=== PATIENT | male | born 1945 | race Caucasian/White ===

== ENCOUNTER 2016-10-23 13:21 | Inpatient (IN) | payer MEDICARE, OTHER ==
--- NOTE | ~2016-10-23 | OP ---
Record Of Operation [facility] [address] [place]. [address] NAME: VALERIY BASS : 45 STATUS : ADM IN [facility]#: [id number] AGE: 71 ADM/REG DATE : 10/23/16 MR#: [id number] REPORT SERV DATE: 10/24/16 DICTATED BY: HAYLEY FARRIS DATE: 10/23/16 REPORT STATUS : Draft TRANSCRIBED BY: MODL DATE: 10/23/16 DATE OF PROCEDURE: 10/23/2016 PREOPERATIVE DIAGNOSIS: Left posterior elbow septic bursitis. POSTOPERATIVE DIAGNOSIS: Left posterior elbow septic bursitis. PROCEDURE: 1. Left posterior elbow septic bursitis. Cultures and specimen sent for gouty crystals. 2. Irrigation and debridement, to include removal of bursal sac with a rongeur. 3. Vac-Pac placement. SURGEON: Hayley Farris M.D. JAVA SOFTWARE DEVELOPER: Garrison. ANESTHESIA: General. ESTIMATED BLOOD LOSS: Less than 5 mL. COMPLICATIONS: None. DISPOSITION: The patient tolerated the procedure well and was brought to recovery room in stable condition. PROCEDURE NOTE: The patient brought to the operating room and placed in supine position. After general anesthesia was administered, a pneumatic tourniquet was placed around the left proximal arm and the left upper extremity distal to the tourniquet was prepped and draped in the usual sterile manner. A surgical timeout was performed and all were in agreement. An Esmarch was then used to exsanguinate the extremity and tourniquet was inflated. A 10 blade scalpel was used to make an 8 to 10 cm longitudinal incision overlying the olecranon septic bursitis. After the skin was incised, the bursitis was identified and incised and the purulent material was taken for samples and the rest discarded/locked out. A rongeur was then used to remove the thickened bursa sac, taking care to protect the ulnar nerve medially. The wound was then irrigated with copious amounts of normal saline via pulse lavage (3 L), and then afterwards, a sponge was cut and contoured to fit the space and packed in the wounds. It was set up. The connection tube was then put in place and a sterile dressing and a posterior splint was applied. The suction tube was put to Vac-Pac kept at 200 mm of constant pressure. Tourniquet was released and the patient was ready to be taken out of general anesthesia. RM/PENNY Record Of [place] [address] [facility]. [address] NAME: VALERIY BASS : 45 STATUS : ADM IN [facility]#: [id number] AGE: 71 ADM/REG DATE : 10/23/16 MR#: [id number] REPORT SERV DATE: 10/24/16 DICTATED BY: HAYLEY FARRIS DATE: 10/23/16 REPORT STATUS : Draft TRANSCRIBED BY: PENNY DATE: 10/23/16 Hayley Farris M.D. / [id number] CC: Anne Marie Mitchell M.D.
--- NOTE | ~2016-10-23 | CN ---
Consultation Report [facility] [address] [place]. [address] NAME: VALERIY BASS : 45 STATUS : ADM IN [facility]#: [id number] AGE: 71 ADM/REG DATE : 10/23/16 MR#: [id number] REPORT SERV DATE: 10/25/16 DICTATED BY: CARSON BONILLA DATE: 10/25/16 REPORT STATUS : Draft TRANSCRIBED BY: MODAllen DATE: 10/25/16 INFECTIOUS DISEASE CONSULT DATE OF CONSULTATION: REASON FOR REFERRAL: Evaluation and treatment of septic bursitis. HISTORY OF PRESENT ILLNESS: The patient is a 71-year-old male, with a history of hypertension, diabetes mellitus, hyperlipidemia, coronary artery disease, he has had coronary artery bypass grafting, and then redo several years later. He was admitted on 10/23/2016, with worsening swelling and pain in his left elbow. It started about a week before that and grew progressively worse. Attempts were made by his primary care physician to aspirate it. He was treated with doxycycline, worsened, and was seen by Rheumatology, who aspirated pus from the bursa, and that was cultured, and grew methicillin-sensitive Staph aureus. He was then admitted and underwent debridement of the bursa two days ago by Dr. Lew. Those cultures also grew methicillin-sensitive Staph aureus. His blood cultures have been negative. He is on Ancef now and doing better. He does not recall any particular trauma or unusual exposures prior to this starting. PAST MEDICAL HISTORY: Otherwise unremarkable. MEDICATIONS: Now on Ancef. ALLERGIES: HE HAS A HISTORY OF AN ALLERGY TO PENICILLIN THAT HAPPENED WHEN HE WAS A CHILD. HE DOES NOT KNOW EXACTLY WHAT OTHER THAN HE WAS TOLD HIS LIPS DID SWELL, TAKEN CEPHALOSPORINS IN THE PAST WITHOUT INCIDENT. SOCIAL HISTORY: He is . Nonsmoker. No history of alcohol or substance abuse. 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 FAMILY HISTORY: Noncontributory. PHYSICAL EXAMINATION: GENERAL: Nontoxic elderly male, in no acute distress. He is alert and oriented x3. VITAL SIGNS: His temperature at present is 97.7, it has been normal throughout the hospital stay, present pulse 93, respirations 18, blood pressure 124/69, and weight is 100 kg. HEENT: Sclerae clear. No oral lesions. NECK: Supple. LUNGS: Clear. HEART: Regular rate and rhythm. ABDOMEN: Soft and nontender. Positive bowel sounds. EXTREMITIES: The left elbow was covered by a surgical bulky dressing, appeared to be normal above and below that. No other extremity lesions noted. Consultation Report [place] [address] [facility] [address] NAME: VALERIY BASS : 45 STATUS : ADM IN [facility]#: [id number] AGE: 71 ADM/REG DATE : 10/23/16 MR#: [id number] REPORT SERV DATE: 10/25/16 DICTATED BY: CARSON BONILLA DATE: 10/25/16 REPORT STATUS : Draft TRANSCRIBED BY: PENNY DATE: 10/25/16 LABORATORY DATA: White blood cell count 9.1 when he came in, 6.2 today; with hematocrit of 33.2, platelets 172, BUN and creatinine 20 and 0.82, and procalcitonin 0.10. IMPRESSION: Septic bursitis of the left elbow, due to methicillin sensitive Staph aureus. RECOMMENDATIONS: 1. I agree with Ancef as best antibiotic. 2. I would recommend a total of three-week course. So, we will order that and also requested a PICC line be done on the day of discharge which should be either tomorrow or Tuesday. 3. Finally, I will follow the patient with you. I appreciate very much your consulting on this patient. NATAN Carson Bonilla M.D. / [id number] CC: Hira Smith M.D.
--- NOTE | ~2016-10-23 | OP ---
Record Of Operation [facility] [address] [place]. [address] NAME: VALERIY BASS : 45 STATUS : ADM IN PAT#: [id number] AGE: 71 ADM/REG DATE : 10/23/16 MR#: [id number] REPORT SERV DATE: 10/28/16 DICTATED BY: HAYLEY FARRIS DATE: 10/28/16 REPORT STATUS : Draft TRANSCRIBED BY: MODL DATE: 10/28/16 DATE OF PROCEDURE: 10/23/2016 PREOPERATIVE DIAGNOSIS: Left posterior elbow olecranon infected bursa and cellulitis requiring multiple I and D's on 10/23/2016, 10/26/2016. POSTOPERATIVE DIAGNOSIS: Left posterior elbow olecranon infected bursa and cellulitis requiring multiple I and D's on 10/23/2016, 10/26/2016. TESTS AND PROCEDURES: Left posterior elbow olecranon infected bursitis and additional abscess subcutaneous tissues of the dorsal forearm. 1. Repeat cultures. 2. Repeat irrigation and debridement. 3. Antibiotic bead placement and Vac-Pac placement. PHYSICIAN: Dr. Farris. ASSISTANT OPERATOR: Sedrick Simon. ANESTHESIA: General. SPECIMENS: Cultures. COMPLICATIONS: None. DISPOSITION: To recovery room in stable condition. PROCEDURE NOTE: The patient was brought to the operating room and placed in the supine position. After general anesthesia was administered, the dressing and posterior splint as well as packing was removed. The wound looked much better but still had some areas of redness and induration. The left arm proximal to the axilla was prepped and draped in the usual sterile manner. Afterwards, the wound was inspected proximally where the Vac-Pac was placed from the initial surgery on 10/23/2016, the wound looked very clean with good granulation tissue. More distally, there were pockets of pus in the left and a rongeur was used to remove this nonviable tissue and exposed these packets that had formed. Afterwards, the area was inspected again and a rongeur was also used to finish up any further debridement of questionable tissue. This was all done in the subcutaneous tissue and did not involve the muscle or bone. Afterwards the wound was adequately irrigated with normal saline via pulse lavage and antibiotic beads, which were previously mixed up before the case using 1 g of vancomycin and 240 mg of gentamicin, were placed into the edges of the wound. A new Vac-Pac sponge was placed in the center of the wound after controlling the sponge. The edges of the wound both distally and proximally were partially closed over the sponge and occlusive dressing was applied to the dorsal wound to make it airtight. The patient on a small hole overlying the sponge was made in the occlusive dressing and the connecting device was put onto the area Record Of [address] [address] NAME: VALERIY BASS : 45 STATUS : ADM IN [facility]#: [id number] AGE: 71 ADM/REG DATE : 10/23/16 MR#: [id number] REPORT SERV DATE: 10/28/16 DICTATED BY: HAYLEY FARRIS DATE: 10/28/16 REPORT STATUS : Draft TRANSCRIBED BY: PENNY DATE: 10/28/16 and then connected to the Vac-Pac suction. Afterwards sterile dressing and a posterior splint was applied. The patient was then ready to be taken out of general anesthesia and brought to the recovery room in stable condition. SHANTELLE/PENNY Hayley Farris M.D. / [id number] CC: Anne Marie Khan M.D.
--- NOTE | ~2016-10-23 | OP ---
Record Of Operation [facility] [address] [place]. [address] NAME: VALERIY BASS : 45 STATUS : ADM IN PAT#: [id number] AGE: 71 ADM/REG DATE : 10/23/16 MR#: [id number] REPORT SERV DATE: 10/26/16 DICTATED BY: HAYLEY FARRIS DATE: 10/26/16 REPORT STATUS : Draft TRANSCRIBED BY: MODL DATE: 10/26/16 DATE OF PROCEDURE: 10/23/2016 PREOPERATIVE DIAGNOSIS: Left elbow MSSA abscess of the olecranon bursa. POSTOPERATIVE DIAGNOSIS: Left elbow MSSA abscess of the olecranon bursa. PROCEDURES: Left elbow 1. Repeat cultures. 2. Repeat irrigation and debridement with a new pocket of abscess found distal to the previous incision. PHYSICIAN: Hayley Farris M.D. QUALITY AUDITOR: Joyce Mendez. ANESTHESIA: General. ESTIMATED BLOOD LOSS: 5 mL. CULTURES: X2 sets. COMPLICATIONS: None. DISPOSITION: The patient tolerated the procedure well and was brought to the recovery room in stable condition. PROCEDURE NOTE: The patient was brought to the operating room and placed in the supine position. After general anesthesia was administered, a pneumatic tourniquet was placed around the left proximal arm. Part of the dressing was removed. The Esmarch was used to exsanguinate the extremity. Tourniquet was inflated. The rest of the dressing was removed but the sponge was kept in place. Left upper extremity distal to the tourniquet was prepped and draped in the usual sterile manner. Sponge was removed. Cultures taken from the space formerly occupied by the bursa, and this was more proximal. The area looked pink and viable and good granulation tissue. However more distally was a pocket of pus and this was incised and the skin overlying this area was incised and then connected to the dorsal incision overlying the ulna. Approximately 10 to 20 mL of pus emanated from the area and was collected, some was sent to microbiology. The wound was then irrigated. A rongeur was used to remove nonviable tissue and after adequate irrigation and debridement, a Vac-Pac sponge was put in the base of the wound and the edges were sewn together using 0 Prolene suture. An occlusive dressing was applied and the connector was placed onto the dressing directly overlying the hole made through the occlusive dressing that was overlying the sponge. This was connected to the suction device and a good seal was able to be achieved. A sterile dressing and a posterior splint was applied. The patient was ready to be taken out of general anesthesia, having tolerated the procedure well. Record Of Operation [place] [id number] [facility] [place]. [address] NAME: VALERIY BASS : 45 STATUS : ADM IN [facility]#: [id number] AGE: 71 ADM/REG DATE : 10/23/16 MR#: [id number] REPORT SERV DATE: 10/26/16 DICTATED BY: HAYLEY FARRIS DATE: 10/26/16 REPORT STATUS : Draft TRANSCRIBED BY: PENNY DATE: 10/26/16 /PENNY Hayley Farris M.D. / [id number] CC: Anne Marie Khan M.D.
--- NOTE | ~2016-10-23 | OP ---
Record Of Operation [facility] [address] [place]. [address] NAME: VALERIY BASS : 45 STATUS : ADM IN PAT#: [id number] AGE: 71 ADM/REG DATE : 10/23/16 MR#: [id number] REPORT SERV DATE: 10/31/16 DICTATED BY: HAYLEY FARRIS DATE: 10/31/16 REPORT STATUS : Draft TRANSCRIBED BY: MODAllen DATE: 10/31/16 DATE OF PROCEDURE: 10/31/2016 PREOPERATIVE DIAGNOSIS: Left posterior elbow into the forearm skin and subcutaneous and slightly deeper methicillin-sensitive Staphylococcus aureus infection status post previous irrigation and debridement and VAC pack placement x3. PROCEDURES: Left posterior elbow/forearm: 1. Repeat cultures. 2. Debridement of subcutaneous nonviable tissue and distal triceps tendon nonviable tissue. 3. Antibiotic beads placement using 1 g of vancomycin and 240 mg of gentamicin. 4. Delayed wound closure. SURGEON: Hayley Farris M.D. MARINE ENGINE DRIVER: Randal Vargas. ANESTHESIA: General. SPECIMENS REMOVED: Cultures x3. COMPLICATIONS: None. DISPOSITION: The patient tolerated the procedure well and was brought to the recovery room in stable condition. PROCEDURE NOTE: The patient was brought to the operating room and placed in the supine position. After general anesthesia was administered, a pneumatic tourniquet was placed around the left proximal arm. The left upper extremity distal to the tourniquet was prepped and draped in the usual sterile manner. A surgical timeout was performed and all were in agreement. At this time, the VAC pack sponge was removed, and cultures were taken. The wound was inspected and afterwards, the previous remaining antibiotic beads were removed. The wound was then irrigated with normal saline via pulse lavage. A rongeur and pickup and scissors were used to debride the nonviable tissue and the subcutaneous tissue as well as the distal triceps tendon as it inserted into the olecranon since this tissue was of poor quality and had evidence of damage from the infection. Afterwards, adequate debridement was carried out. The wound was then packed with antibiotic beads and closed using Prolene suture. A sterile dressing and a posterior splint was applied. The tourniquet, which was inflated prior to prepping and draping, was then released and after the dressing and posterior splint was applied, the patient was taken out of general anesthesia and brought to the recovery room in stable condition. /MODL Record Of [facility] [address] [facility] [address] [place]. [address] NAME: VALERIY BASS : 45 STATUS : ADM IN [facility]#: [id number] AGE: 71 ADM/REG DATE : 10/23/16 MR#: [id number] REPORT SERV DATE: 10/31/16 DICTATED BY: HAYLEY FARRIS DATE: 10/31/16 REPORT STATUS : Draft TRANSCRIBED BY: MODAllen DATE: 10/31/16 Hayley Farris M.D. / [id number] CC: Anne Marie Khan M.D.
--- NOTE | ~2016-10-23 | HP ---
History And Physical [address] [address] NAME: TOR BASS : 45 STATUS : ADM IN [facility]#: [id number] AGE: 71 ADM/REG DATE : 10/23/16 MR#: [id number] REPORT SERV DATE: 10/24/16 DICTATED BY: HAYLEY FARRIS DATE: 10/23/16 REPORT STATUS : Draft TRANSCRIBED BY: MODL DATE: 10/23/16 DATE OF ADMISSION: 10/23/2016 CHIEF COMPLAINT: Right elbow septic bursitis. HISTORY OF PRESENT ILLNESS: Mr. 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 He still works, but does enjoy traveling to [place] to [place]. For the past 5 to 6 weeks, he has been bothered with left posterior elbow pain and swelling around the olecranon area. He was seen by his family physician, Dr. Costa who then referred Mr. Bass to Dr. Vicki Granado, at [facility]. On 10/21/2016, Dr. Granado aspirated the left posterior elbow and this was positive for rare uric acid extracellular crystals. Over the next ensuing 20 to 24 hours, his symptoms of pain and swelling increased in his posterior elbow. 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 He was then checked by Dr. Granado who told Mr. Bass he should come to the hospital. He is now in direct admit and is under the care of Dr. Hira Smith who has ordered vancomycin to start shortly. Interestingly, there has been no other joint pain, swelling, including the toe MTP joints or right posterior elbow olecranon area. He does complain of bilateral base of thumb pain. PAST MEDICAL HISTORY: 1. Insulin-dependent diabetes. 2. Coronary artery disease. 3. TIA in 2001 with resolved symptoms. 4. Hyperlipidemia. 5. Gout. 6. Neuropathy affecting feet only. PAST SURGICAL HISTORY: 1. CABG in 1989 and redo in 2001. 2. Multiple stent placements (14), over the past 20 years. 3. History of prostate CA, treated with radiation therapy by Dr. Bustillo and now followed by Dr. Abel Willis. 4. Bilateral ring finger trigger finger releases by Dr. Bg Mendez. ALLERGIES: PENICILLIN WHICH CAUSES ANGIOEDEMA. HOME MEDICATIONS: 1. Elavil 10 mg at bedtime. 2. Vitamin C 500 mg daily. 3. Aspirin 81 mg at bedtime. 4. B complex vitamin one tab p.o. daily. 5. Zyrtec 10 mg p.o. at bedtime. 6. Jardiance 10 mg p.o. daily. 7. Folic acid 400 mcg daily. 8. Amaryl 2 mg daily. 9. Imdur 20 mg tabs daily. History And Physical [address] [address] NAME: TOR BASS : 45 STATUS : ADM IN [facility]#: [id number] AGE: 71 ADM/REG DATE : 10/23/16 MR#: [id number] REPORT SERV DATE: 10/24/16 DICTATED BY: HAYLEY FARRIS DATE: 10/23/16 REPORT STATUS : Draft TRANSCRIBED BY: PENNY DATE: 10/23/16 10.Toprol-XL 100 mg p.o. daily. 11.Nitrostat 0.4 mg sublingual p.r.n. chest pain (many years since last taken). 12.Prilosec 20 mg daily. 13.Lyrica 50 mg tabs bedtime. 14.Altace 2.5 mg p.o. daily. 15.Crestor 40 mg daily. 16.Janumet mg tabs 1 tab p.o. b.i.d. 17.Recently started Bactrim DS 1 p.o. b.i.d. on 10/22/2016 but is not part of his regular pain medicine. SOCIAL HISTORY: , one child, daughter, who is healthy. 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 Negative for EtOH or tobacco. He enjoys fishing. REVIEW OF SYSTEMS: Wears reading glasses. Denies any chest pain for the past five years, but does have some pain and impotence, otherwise 13-point review of systems reveals no other abnormalities. FAMILY HISTORY: Noncontributory. PHYSICAL EXAMINATION: GENERAL: Pleasant, cooperative 71-year-old, white male, lying in bed, with bandage over left elbow covered with pus, in no acute distress. VITAL SIGNS: Height 6 feet, weight 209 pounds. Blood pressure 143/81, heart rate 95, saturation 98% on room air. HEENT: Normocephalic, atraumatic. Some teeth missing but pharynx not injected. Sclerae nonicteric. COR: Regular rate. LUNGS: Clear to auscultation. ABDOMEN: Soft, nontender. MUSCULOSKELETAL: C-spine nontender. Full range of motion. Right shoulder, elbow, wrist, and all fingers with functional range of motion. Right thumb has some tenderness of the thumb CMC joint and there is a weakly positive Grind test. All fingers of both hands with early Heberden's nodes. Left upper extremity is held close to the body. The shoulder is nontender and the dressing on the posterior elbow saturated with pus, emanating from the aspiration site. There is redness and pitting edema of the elbow and forearm and weakly positive axillary adenopathy. Epitrochlear adenopathy not able to be palpated due to the swelling. Left hand is neurovascularly intact and elbow wrist range of motion not performed due to pain caused by infection at elbow. Fingers are neurologically intact and has full range of motion. TLS spine is nontender. Both hips, knees, and ankles with no gross deformities and no point tenderness. LABORATORY DATA: Aspiration from left elbow performed at [facility] showed rare uric acid extracellular crystals. CRP was 14.66 and the sedimentation rate was 72. History And Physical [address] [address] NAME: TOR BASS : 45 STATUS : ADM IN [facility]#: [id number] AGE: 71 ADM/REG DATE : 10/23/16 MR#: [id number] REPORT SERV DATE: 10/24/16 DICTATED BY: HAYLEY FARRIS DATE: 10/23/16 REPORT STATUS : Draft TRANSCRIBED BY: PENNY DATE: 10/23/16 IMPRESSION: 1. Left posterior elbow septic bursitis. 2. Gout. 3. Severe coronary artery disease. PLAN: The patient will undergo irrigation, debridement, and Vac-Pac placement, posterior elbow olecranon bursitis, and repeat I and D in 3 to 4 days. The risks and benefits of the surgery were discussed with Tor. All questions were answered by me to satisfaction. He wished to proceed with surgery. We will plan for this shortly. SHANTELLE/PENNY Hayley Farris M.D. / [id number] CC: Anne Marie Mitchell M.D.
--- NOTE | ~2016-10-23 | HP ---
History And Physical [id number] [place]. [address] NAME: VALERIY BASS : 45 STATUS : ADM IN [facility]#: [id number] AGE: 71 ADM/REG DATE : 10/23/16 MR#: [id number] REPORT SERV DATE: 10/23/16 DICTATED BY: HIRA SMITH DATE: 10/23/16 REPORT STATUS : Draft TRANSCRIBED BY: MODL DATE: 10/23/16 DATE OF ADMISSION: 10/23/2016 CHIEF COMPLAINT: Left elbow swelling. HISTORY OF PRESENT ILLNESS: The patient is a 71-year-old white male, who was referred to the hospital as a direct admission by Dr. Vicki Granado, where the patient had presented with left elbow swelling and forearm redness. Dr. Granado saw him last and thought that he had septic bursitis and actually did an aspiration of his elbow and cultures were sent. Cultures grew Staph aureus, sensitivities are not back yet. The patient presented again today for a followup and his arm looked worse and more cellulitic as well as more swelling, so Dr. Granado referred the patient to the hospital for further treatment and evaluation. When I talked to the patient in the hospital, this patient reported that his problem started about three weeks ago where Dr. Quan Costa had seen him first, aspirated his elbow, but there was no antibiotics at that time, but then the swelling recurred. He went to see Dr. Costa again and I think it was reaspirated at that time. In the interim, Dr. Heller saw the patient and recommended that he see Dr. Granado, and at that point, the patient hence was referred to the hospital for further evaluation and treatment for failing outpatient oral treatment for what appears to be septic bursitis and cellulitis. This patient reports some mild chest pain. He has had some shortness of breath. He denies any fevers. He has had sweats. Last night or day before, he had an acute rupture of the elbow and had significant leakage of fluid. He has not had any nausea, vomiting or any other constitutional symptoms. REVIEW OF SYSTEMS: 12-point review of systems otherwise negative except for what is noted in the HPI. PAST MEDICAL HISTORY: Significant for gout, type 2 diabetes mellitus, hypertension, coronary artery disease, and hyperlipidemia. PAST SURGICAL HISTORY: Significant for CABG and then redo CABG. Radiation therapy to the prostate for prostate cancer. ALLERGIES: TO PENICILLIN IN CHILDHOOD. HE HAD A LOWER LIP SWELLING AT THAT TIME. HOME MEDICATIONS: Include Zyrtec 10 mg once daily, vitamin C 500 mg once daily, super B vitamin complex, Bactrim DS one tablet twice daily and has taken one day therapy of it, ramipril 2.5 mg capsule, Prilosec 20 mg OTC, Nitrostat 0.4 sublingual p.r.n., Lopressor XL 100 mg daily, Lyrica 50 mg once daily, Jardiance one tablet once daily, Janumet 50 mg/1000 mg twice daily, isosorbide mononitrate ER 60 mg once daily, Glimepiride 4 mg once daily, folic acid 400 mcg once daily, Crestor 40 mg once daily, colchicine 0.6 mg one tablet two times every day as needed for gout, aspirin 81 mg once daily, and Elavil 10 mg two tablets at bedtime. SOCIAL HISTORY: This patient denies use of alcohol, tobacco, or illicit substances. He currently is employed and owns [employer]. History And Physical [address] [address] NAME: VALERIY BASS : [birth year] STATUS : ADM IN [facility]#: [id number] AGE: 71 ADM/REG DATE : 10/23/16 MR#: [id number] REPORT SERV DATE: 10/23/16 DICTATED BY: HIRA SMITH DATE: 10/23/16 REPORT STATUS : Draft TRANSCRIBED BY: PENNY DATE: 10/23/16 FAMILY HISTORY: Significant for heart disease. No history of cancer. PHYSICAL EXAMINATION: GENERAL: White male, lying on the bed, appears to be in no obvious respiratory distress. NEURO: He is awake, alert. He is oriented. VITAL SIGNS: Blood pressure is 132/76, temperature is 98.5, pulse of 98. HEENT: Head is normocephalic, atraumatic. Pupils are equal, round, and reactive to light. Extraocular muscles are intact. Sclerae are anicteric. Conjunctivae normal. Oropharynx without lesion. Tongue protrusion midline. Uvula midline. NECK: Supple. No evidence of jugular venous distention. No carotid bruits or thyromegaly is appreciated. No lymphadenopathy in the neck is palpable. HEART: Regular rate rhythm. No murmurs, rubs, or gallops are heard. PMI is nondisplaced. LUNGS: Clear to auscultation both anteriorly and posteriorly without rales, rhonchi, wheezing, or consolidation. ABDOMEN: Slightly obese, soft, nontender. Good bowel sounds. No rebound or guarding. No organomegaly. EXTREMITIES: Without cyanosis, clubbing, or edema in the lower extremities. The right upper extremity appears to be intact. Prior surgical correction of trigger finger in both arms is noted. In the left upper extremity, there is significant swelling with redness, warmth, and erythema. There is some expressible material at the left elbow and tenderness to palpation. NEUROLOGICAL: Seems to be grossly intact. LABORATORY DATA: All labs are pending. I do have a preliminary culture report from elbow aspiration done by Dr. Granado on 10/21/2016 and it shows abundant growth of Staphylococcus aureus. The evaluation of the fluid did show rare uric acid extracellular crystals. His CRP was 14. His sedimentation rate was 72. Serum uric acid level was 4.2. Albumin was 3.6, alkaline phosphatase was 46, ALT was 16, AST was 17, BUN was 19, calcium was 8.8. Chloride was 104, bicarb was 25, creatinine was 0.78, glucose was 96, potassium was 4.1. IMPRESSION: 1. Left elbow septic bursitis. 2. Cellulitis of the left forearm. 3. Possible gout. 4. Non-insulin dependent diabetes. 5. Hypertension. 6. Coronary artery disease, status post coronary artery bypass graft and redo coronary artery bypass graft. 7. Hyperlipidemia. 8. History of prostate cancer, status post radiation therapy. PLAN: The patient will be admitted. Ortho consult will be done. I have already discussed his care with Dr. Sevilla. We will keep him n.p.o. for now. We will start IV vancomycin. We will obtain blood cultures. We will repeat procalcitonin level and we will also get a lactate level. We will follow up the aspirate culture and sensitivities. Check other routine labs. Continue home medications when available from Pharmacy. The patient remains a full code. History And Physical [address] [address] NAME: VALERIY BASS : 45 STATUS : ADM IN [facility]#: [id number] AGE: 71 ADM/REG DATE : 10/23/16 MR#: [id number] REPORT SERV DATE: 10/23/16 DICTATED BY: HIRA SMITH DATE: 10/23/16 REPORT STATUS : Draft TRANSCRIBED BY: PENNY DATE: 10/23/16 MAGALI/PENNY Hira Smith M.D. / [id number] CC: Anne Marie Mitchell M.D. Leonard Hays III, M.D., LOCATED WITHIN [facility], [facility] Vicki Granado M.D.
--- NOTE | ~2016-10-23 | DS ---
Discharge Summary [facility] [address] [place]. [address] NAME: VALERIY BASS : 45 STATUS : ADM IN [facility]#: [id number] AGE: 71 ADM/REG DATE : 10/23/16 MR#: [id number] REPORT SERV DATE: 11/01/16 DICTATED BY: HERMAN JOSHUA DATE: 11/01/16 REPORT STATUS : Draft TRANSCRIBED BY: MODL DATE: 11/01/16 ADMISSION DATE: 10/23/2016 DISCHARGE DATE: 11/01/2016 FINAL HOSPITAL DIAGNOSES: 1. Bursitis and cellulitis of the left elbow. 2. Diabetes. 3. Hypertension. 4. History of coronary artery disease. CONSULTATIONS: 1. Dr. Lew, Orthopedics. 2. Dr. Pierre, Infectious Disease. PROCEDURES: Multiple debridement and wound cultures to the left upper extremity. Echocardiogram done on 10/23/2016, dilated multi-infarct cardiomyopathy with reduction in global LV systolic function, mild left atrial enlargement, incomplete mitral valve closure, mild regurgitation, EF was 25%-30%. CURRENT PHYSICAL FINDINGS AND HPI: Please see dictated H and P by Dr. Smith. In brief, the patient is a 71-year-old male who presented after outpatient treatment for his bursitis that was not resolving. LAB WORK: Initial procalcitonin was 0.10. Electrolytes were monitored during his hospital stay and were normal. C-reactive protein was noted to be elevated at 208. Lactate initial on the admit was 2.5. Presenting white count was 9.1, 5.5 prior to discharge. Sed rate was 86. Blood cultures on the 10/23/2016 were negative at four days. Joint aspiration was methicillin-sensitive Staph aureus. Wound cultures multiple were MSSA also. HOSPITAL COURSE: Initial vital signs showed a BP of 132/76, temp was 98.5, and he remained afebrile during his hospital stay. Heart rates were in the 80s to 90s. He had no supplemental O2 requirements. The patient was admitted with a concern for septic arthritis. Infectious Disease and Orthopedics were consulted. Above lab work and studies were done and ordered. He was placed on sliding scale insulin. His home meds were held for his diabetes. Orthopedics was consulted and he underwent his first surgery on the 10/23/2016. Pharmacy dosed his vancomycin and this was changed to Ancef on the 10/24/[address] Smith. He had a PICC line placed on the 10/25/2016. ID was consulted at that time and continued the Ancef. Dr. Lew continued to follow and patient had several I and D and wound cultures done during his hospital stay. His only problems during the stay, he became hypertensive, it was noted that he was retaining fluid and he responded well to IV Lasix with near resolution of his edema and back to his target weight. His Altace dose was increased from 2.5 to 5 and he was given p.r.n. hydralazine. His sliding scales were titrated and then he was initially started on Norvasc 5 additionally to control his blood pressure. Electrolytes were followed. He had no hypokalemia or magnesemia. On 11/01/2016, home health was arranged, antibiotic orders were noted, and he was felt stable for discharge. New Rx given were for Altace 5, the dose increased from 2.5; Norvasc 5 one per day. The patient will Discharge [address] [address] NAME: VALERIY BASS : 45 STATUS : ADM IN [facility]#: [id number] AGE: 71 ADM/REG DATE : 10/23/16 MR#: [id number] REPORT SERV DATE: 11/01/16 DICTATED BY: HERMAN JOSHUA DATE: 11/01/16 REPORT STATUS : Draft TRANSCRIBED BY: MODAllen DATE: 11/01/16 follow his blood pressures, and when they returned to normal, he will titrate off the Norvasc unless his hypertension should recur, and Florastor b.i.d. while he is on p.o. antibiotics. Otherwise, we will have pharmacy clarify his home medications on his discharge, but appears his meds will be Elavil 20, aspirin 81, Ancef q.8, Imdur 120, nitro 0.4, Toprol-XL 100, Prilosec 20, Lyrica 50 at bedtime, Janumet b.i.d., B-complex, vitamin C, Crestor 40, Jardiance 10 mg daily, folic acid 400, vitamin D, Amaryl 2, Zyrtec 10. TLF/MODL Herman Joshua M.D. / [id number] CC: Anne Marie Khan M.D.
[~2016-10-23 13:21] MED LIST: ALTA2.5 PO; AMARYL4 PO; AMIT10 PO; ASAB PO; ATEN100 PO; ATEN50 PO; B COMPLETE PO; CO Q-10200 MG PO; CRESTOR40 MG PO; FOLIC ACID; Folic Acid PO; IMDUR30 PO; IMDUR60 PO; JANUMET1 TA1 PO; LEVEMFLXPN SC; LOPID6 PO; NEUR300 PO; NTG150 SL; PRILO PO; PRILOSEC10 MG PO; VITC500 PO
[2016-10-23] MEDS ORDERED: AMIT10 PO (14:27)
[2016-10-23] MEDS ORDERED: JARDI10T PO (14:28)
[2016-10-23] MEDS ORDERED: IMDUR120 PO (14:28)
[2016-10-23] MEDS ORDERED: CRESTOR40 MG PO (14:28)
[2016-10-23] MEDS ORDERED: LYRICA50 PO (14:28)
[2016-10-23] MEDS ORDERED: JANUMET1 TA1 PO (14:28)
[2016-10-23] MEDS ORDERED: FOLIC ACID400 MC1 PO (14:29)
[2016-10-23] MEDS ORDERED: TOPXL100 PO (14:29)
[2016-10-23] MEDS ORDERED: ALTA2.5 PO (14:29)
[2016-10-23] MEDS ORDERED: VITAMIN B PO (14:29)
[2016-10-23] MEDS ORDERED: VITC500 PO (14:29)
[2016-10-23] MEDS ORDERED: BACTRIM DS1 TAB PO (14:29)
[2016-10-23] MEDS ORDERED: NITROSTAT0.4 MG SL (14:30)
[2016-10-23] MEDS ORDERED: PRILO PO (14:30)
[2016-10-23] MEDS ORDERED: ZYRTEC ALLGY10 MG PO (14:30)
[2016-10-23] MEDS ORDERED: ASAB PO (14:30)
[2016-10-23] MEDS ORDERED: AMARYL2 PO (14:30)
[2016-10-23 15:15] LABS: BASOPHILS 0.1 %; BASOPHILS ABSOLUTE 0.01 10/3/uL (0.0-0.16); EOSINOPHILS 0.7 %; EOSINOPHILS ABSOLUTE 0.06 10/3/uL (0.0-0.53); HEMATOCRIT 38.1 % (40.0-51.0); HEMOGLOBIN 12.7 g/dL (13.6-17.8); IMMATURE GRANULOCYTES 0.2 %; IMMATURE GRANULOCYTES ABSOLUTE 0.02 10/3/uL (0.0-0.11); LYMPHOCYTES 11.1 %; LYMPHOCYTES ABSOLUTE 1.01 10/3/uL (0.67-4.30); MEAN CORPUS HGB CONC 33.3 g/dL (32.0-36.0); MEAN CORPUSCULAR HEMOGLOB 29.9 pg (26.0-34.0); MEAN CORPUSCULAR VOLUME 89.6 fL (80-100); MEAN PLATELET VOLUME 9.6 fL (9.2-13.0); MONOCYTES 9.7 %; MONOCYTES ABSOLUTE 0.88 10/3/uL (0.21-1.20); NEUTROPHILS 78.2 %; NEUTROPHILS ABSOLUTE 7.09 10/3/uL (2.02-8.40); PLATELET COUNT 152 10/3/uL (150-400); RBC DISTRIBUTION WIDTH 15.1 % (12.0-16.0); RED CELL COUNT 4.25 10/6/uL (4.7-6.1); WHITE BLOOD CELLS 9.1 10/3/uL (4.5-10.5)
[2016-10-23 15:20] LABS: MANUAL DIFF NO %
[2016-10-23 15:38] LABS: A/G RATIO 0.7 (0.7-1.9); ALBUMIN 3.1 G/DL (3.5-5.0); ALKALINE PHOSPHATASE 72 U/L (45-117); BUN (BLOOD UREA NITROGEN) 16 MG/DL (6-23); CHLORIDE, SERUM 102 MMOL/L (96-112); CO2 (CARBON DIOXIDE) 25 MMOL/L (24-34); CREATININE 1.04 MG/DL (0.70-1.30); GFR AFRICAN AMERICAN 83 ML/MIN (>=60); GFR NON AFRICAN AMERICAN 72 ML/MIN (>=60); GLOBULIN 4.7 G/DL (2.5-4.1); GLUCOSE, SERUM 145 MG/DL (60-99); PHOSPHORUS, SERUM 2.4 MG/DL (2.5-4.5); POTASSIUM, SERUM 4.4 MMOL/L (3.5-5.3); SGOT(AST) 13 U/L (5-40); SGPT(ALT) 16 U/L (5-65); SODIUM, SERUM 139 MMOL/L (135-148); TOTAL BILIRUBIN 0.6 MG/DL (0-1.2); TOTAL PROTEIN 7.8 G/DL (6.0-8.5)
[2016-10-23 16:28] LABS: SED RATE 86 MM/HR (0-15)
[2016-10-24 02:32] LABS: BASOPHILS 0 %; EOSINOPHILS 0.5 %; EOSINOPHILS ABSOLUTE 0.04 10/3/uL (0.0-0.53); HEMOGLOBIN 11.2 g/dL (13.6-17.8); IMMATURE GRANULOCYTES 0.1 %; IMMATURE GRANULOCYTES ABSOLUTE 0.01 10/3/uL (0.0-0.11); LYMPHOCYTES ABSOLUTE 1.05 10/3/uL (0.67-4.30); MEAN CORPUS HGB CONC 33.2 g/dL (32.0-36.0); MEAN CORPUSCULAR HEMOGLOB 29.9 pg (26.0-34.0); MEAN CORPUSCULAR VOLUME 90.1 fL (80-100); MEAN PLATELET VOLUME 9.4 fL (9.2-13.0); MONOCYTES 10.9 %; MONOCYTES ABSOLUTE 0.88 10/3/uL (0.21-1.20); NEUTROPHILS 75.5 %; PLATELET COUNT 142 10/3/uL (150-400); RBC DISTRIBUTION WIDTH 15.2 % (12.0-16.0); RED CELL COUNT 3.74 10/6/uL (4.7-6.1); WHITE BLOOD CELLS 8.1 10/3/uL (4.5-10.5)
[2016-10-24 02:33] LABS: HEMATOCRIT 33.7 % (40.0-51.0); MANUAL DIFF NO %
[2016-10-24 02:45] LABS: ALBUMIN 2.5 G/DL (3.5-5.0); BUN (BLOOD UREA NITROGEN) 19 MG/DL (6-23); CALCIUM, SERUM 8.3 MG/DL (8.5-10.4); CHLORIDE, SERUM 106 MMOL/L (96-112); CO2 (CARBON DIOXIDE) 25 MMOL/L (24-34); CREATININE 0.97 MG/DL (0.70-1.30); GFR AFRICAN AMERICAN 91 ML/MIN (>=60); GFR NON AFRICAN AMERICAN 78 ML/MIN (>=60); GLUCOSE, SERUM 170 MG/DL (60-99); PHOSPHORUS, SERUM 4.1 MG/DL (2.5-4.5); POTASSIUM, SERUM 4.5 MMOL/L (3.5-5.3); SODIUM, SERUM 141 MMOL/L (135-148)
[2016-10-25 05:37] LABS: BASOPHILS 0.3 %; BASOPHILS ABSOLUTE 0.02 10/3/uL (0.0-0.16); EOSINOPHILS 4.5 %; EOSINOPHILS ABSOLUTE 0.28 10/3/uL (0.0-0.53); HEMATOCRIT 33.2 % (40.0-51.0); HEMOGLOBIN 10.9 g/dL (13.6-17.8); IMMATURE GRANULOCYTES 0.2 %; IMMATURE GRANULOCYTES ABSOLUTE 0.01 10/3/uL (0.0-0.11); LYMPHOCYTES 17.6 %; LYMPHOCYTES ABSOLUTE 1.09 10/3/uL (0.67-4.30); MEAN CORPUS HGB CONC 32.8 g/dL (32.0-36.0); MEAN CORPUSCULAR HEMOGLOB 29.7 pg (26.0-34.0); MEAN CORPUSCULAR VOLUME 90.5 fL (80-100); MEAN PLATELET VOLUME 9.6 fL (9.2-13.0); MONOCYTES 10.2 %; MONOCYTES ABSOLUTE 0.63 10/3/uL (0.21-1.20); NEUTROPHILS 67.2 %; NEUTROPHILS ABSOLUTE 4.15 10/3/uL (2.02-8.40); PLATELET COUNT 172 10/3/uL (150-400); RBC DISTRIBUTION WIDTH 15.4 % (12.0-16.0); RED CELL COUNT 3.67 10/6/uL (4.7-6.1); WHITE BLOOD CELLS 6.2 10/3/uL (4.5-10.5)
[2016-10-25 05:39] LABS: MANUAL DIFF NO %
[2016-10-25 05:51] LABS: ALBUMIN 2.4 G/DL (3.5-5.0); BUN (BLOOD UREA NITROGEN) 20 MG/DL (6-23); CALCIUM, SERUM 8.3 MG/DL (8.5-10.4); CHLORIDE, SERUM 108 MMOL/L (96-112); CO2 (CARBON DIOXIDE) 21 MMOL/L (24-34); CREATININE 0.82 MG/DL (0.70-1.30); GFR AFRICAN AMERICAN 103 ML/MIN (>=60); GFR NON AFRICAN AMERICAN 89 ML/MIN (>=60); GLUCOSE, SERUM 172 MG/DL (60-99); POTASSIUM, SERUM 4.1 MMOL/L (3.5-5.3); SODIUM, SERUM 138 MMOL/L (135-148)
[2016-10-25 05:54] LABS: PHOSPHORUS, SERUM 2.5 MG/DL (2.5-4.5)
[2016-10-26 05:08] LABS: BASOPHILS 0.2 %; BASOPHILS ABSOLUTE 0.01 10/3/uL (0.0-0.16); EOSINOPHILS 4.1 %; EOSINOPHILS ABSOLUTE 0.24 10/3/uL (0.0-0.53); HEMATOCRIT 35.5 % (40.0-51.0); HEMOGLOBIN 11.6 g/dL (13.6-17.8); IMMATURE GRANULOCYTES 0.2 %; IMMATURE GRANULOCYTES ABSOLUTE 0.01 10/3/uL (0.0-0.11); LYMPHOCYTES 15.6 %; LYMPHOCYTES ABSOLUTE 0.91 10/3/uL (0.67-4.30); MEAN CORPUS HGB CONC 32.7 g/dL (32.0-36.0); MEAN CORPUSCULAR HEMOGLOB 29.5 pg (26.0-34.0); MEAN CORPUSCULAR VOLUME 90.3 fL (80-100); MEAN PLATELET VOLUME 9.4 fL (9.2-13.0); MONOCYTES 10.3 %; NEUTROPHILS 69.6 %; NEUTROPHILS ABSOLUTE 4.06 10/3/uL (2.02-8.40); PLATELET COUNT 183 10/3/uL (150-400); RED CELL COUNT 3.93 10/6/uL (4.7-6.1); WHITE BLOOD CELLS 5.8 10/3/uL (4.5-10.5)
[2016-10-26 05:09] LABS: MANUAL DIFF NO %
[2016-10-26 05:24] LABS: ALBUMIN 2.5 G/DL (3.5-5.0); BUN (BLOOD UREA NITROGEN) 18 MG/DL (6-23); CALCIUM, SERUM 8.2 MG/DL (8.5-10.4); CHLORIDE, SERUM 111 MMOL/L (96-112); CO2 (CARBON DIOXIDE) 21 MMOL/L (24-34); GFR AFRICAN AMERICAN 110 ML/MIN (>=60); GFR NON AFRICAN AMERICAN 95 ML/MIN (>=60); GLUCOSE, SERUM 161 MG/DL (60-99); PHOSPHORUS, SERUM 2.6 MG/DL (2.5-4.5); POTASSIUM, SERUM 4.1 MMOL/L (3.5-5.3); SODIUM, SERUM 142 MMOL/L (135-148)
[2016-10-28 05:48] LABS: BASOPHILS 0.7 %; BASOPHILS ABSOLUTE 0.04 10/3/uL (0.0-0.16); EOSINOPHILS 5.8 %; EOSINOPHILS ABSOLUTE 0.32 10/3/uL (0.0-0.53); HEMATOCRIT 35.8 % (40.0-51.0); HEMOGLOBIN 11.6 g/dL (13.6-17.8); IMMATURE GRANULOCYTES 0.2 %; IMMATURE GRANULOCYTES ABSOLUTE 0.01 10/3/uL (0.0-0.11); LYMPHOCYTES 23.3 %; LYMPHOCYTES ABSOLUTE 1.28 10/3/uL (0.67-4.30); MEAN CORPUS HGB CONC 32.4 g/dL (32.0-36.0); MEAN CORPUSCULAR HEMOGLOB 29.4 pg (26.0-34.0); MEAN CORPUSCULAR VOLUME 90.9 fL (80-100); MEAN PLATELET VOLUME 9.2 fL (9.2-13.0); MONOCYTES 12.7 %; NEUTROPHILS 57.3 %; NEUTROPHILS ABSOLUTE 3.15 10/3/uL (2.02-8.40); PLATELET COUNT 228 10/3/uL (150-400); RBC DISTRIBUTION WIDTH 15.4 % (12.0-16.0); RED CELL COUNT 3.94 10/6/uL (4.7-6.1); WHITE BLOOD CELLS 5.5 10/3/uL (4.5-10.5)
[2016-10-28 05:54] LABS: MANUAL DIFF NO %
[2016-10-28 06:00] LABS: BUN (BLOOD UREA NITROGEN) 15 MG/DL (6-23); CALCIUM, SERUM 8.2 MG/DL (8.5-10.4); CHLORIDE, SERUM 108 MMOL/L (96-112); CO2 (CARBON DIOXIDE) 23 MMOL/L (24-34); GFR AFRICAN AMERICAN 110 ML/MIN (>=60); GFR NON AFRICAN AMERICAN 95 ML/MIN (>=60); POTASSIUM, SERUM 4.1 MMOL/L (3.5-5.3); SODIUM, SERUM 141 MMOL/L (135-148)
[2016-10-28 06:02] LABS: GLUCOSE, SERUM 206 MG/DL (60-99)
[2016-10-31 06:46] LABS: CHLORIDE, SERUM 102 MMOL/L (96-112); CREATININE 0.81 MG/DL (0.70-1.30); GFR AFRICAN AMERICAN 104 ML/MIN (>=60); GFR NON AFRICAN AMERICAN 89 ML/MIN (>=60); GLUCOSE, SERUM 168 MG/DL (60-99); POTASSIUM, SERUM 3.4 MMOL/L (3.5-5.3); SODIUM, SERUM 139 MMOL/L (135-148)
[2016-10-31 06:47] LABS: BUN (BLOOD UREA NITROGEN) 11 MG/DL (6-23); CO2 (CARBON DIOXIDE) 30 MMOL/L (24-34)
[2016-11-01 06:09] LABS: BUN (BLOOD UREA NITROGEN) 14 MG/DL (6-23); CALCIUM, SERUM 8.7 MG/DL (8.5-10.4); CHLORIDE, SERUM 101 MMOL/L (96-112); CO2 (CARBON DIOXIDE) 27 MMOL/L (24-34); CREATININE 0.86 MG/DL (0.70-1.30); GFR AFRICAN AMERICAN 101 ML/MIN (>=60); GFR NON AFRICAN AMERICAN 87 ML/MIN (>=60); POTASSIUM, SERUM 3.5 MMOL/L (3.5-5.3); SODIUM, SERUM 138 MMOL/L (135-148)
[2016-11-01 06:13] LABS: GLUCOSE, SERUM 230 MG/DL (60-99)
[2016-11-01] MEDS ORDERED: FLORASTOR250 MG PO (12:26)
[2016-11-01] MEDS ORDERED: NORV5 PO (12:27)
[2016-11-01] MEDS ORDERED: ALTA5 PO (12:27)
[2016-11-01] MEDS ORDERED: PCET PO (12:27)
== END 2016-11-01 14:04 | disposition home or self-care (01) | DRG 464 ==
LOC: 4SO 13:21
PROVIDERS: Internal Medicine; Orthopaedic Surgery Hand Surgery
DX: M71.522 Other bursitis, not elsewhere classified, left elbow (principal); L03.114 Cellulitis of left upper limb; G62.9 Polyneuropathy, unspecified; B95.61 Methicillin susceptible Staphylococcus aureus infection as the cause of diseases classified elsewhere; L02.414 Cutaneous abscess of left upper limb; E11.9 Type 2 diabetes mellitus without complications; I10 Essential (primary) hypertension; Z86.73 Personal history of transient ischemic attack (TIA), and cerebral infarction without residual deficits; E78.5 Hyperlipidemia, unspecified; I25.10 Atherosclerotic heart disease of native coronary artery without angina pectoris; Z95.1 Presence of aortocoronary bypass graft; Z95.5 Presence of coronary angioplasty implant and graft; Z85.46 Personal history of malignant neoplasm of prostate; Z92.3 Personal history of irradiation; Z88.0 Allergy status to penicillin; Z79.82 Long term (current) use of aspirin; Z79.84 Long term (current) use of oral hypoglycemic drugs; M10.021 Idiopathic gout, right elbow; Z91.041 Radiographic dye allergy status; Z87.891 Personal history of nicotine dependence; K59.00 Constipation, unspecified
CPT/HCPCS: 36569; 73080-LT; 80048; 80053; 80069; 82962; 83605; 83735; 84100; 84145; 85025; 85652; 86140; 87015; 87040; 87070; 87075; 87077; 87102; 87116; 87186; 87205; 93005; 94640; A9270-GY; C1713; C1751; C8929; J0330; J0360; J0690; J1170; J1580; J2250; J2270; J2370; J2405; J2710; J3010; J3370; Q9957